=== PATIENT | male | born 2005 | race Caucasian/White ===

== ENCOUNTER 2024-09-21 14:22 | Emergency (ER) | payer OTHER, SELFPAY ==
--- NOTE | 2024-09-21 14:26 | ED.EPISTAXIS ---
HPI - Epistaxis General Chief complaint: Epistaxis Stated complaint: Nose Bleed Time Seen by Provider: 09/21/24 14:26 Source: patient Mode of arrival: ambulatory Limitations: no limitations History of Present Illness HPI Narrative: Ric is a 19-year-old male patient presenting to the clinic today with complaints a nosebleed since around 12:30 today. He reports he has been putting backing up in his nose but has not applied pressure to stop the bleeding. States every time he takes a packing out the bleeding continues. No injury. When asked if he picked his nose, he denies. Related Data Home Medications ?Medication ?Instructions ?Recorded ?Confirmed ?Last Taken ?Type No Home Medications 09/21/24 09/21/24 Unknown History Allergies Allergy/AdvReac Type Severity Reaction Status Date / Time No Known Allergies Allergy Verified 09/21/24 14:31 Review of Systems Review of Systems: Pertinent positives per HPI. Patient denies any fever, chills, rash, headache, visual changes, dizziness, cough, runny nose, sore throat, shortness of breath, chest pain, palpitations, nausea, vomiting, diarrhea, constipation, abdominal pain, or any urinary issues. PMFSH Comments At the time of my signature, I reviewed and agree with the nursing past medical, surgical, social, and family history. There is no relevant family history pertinent to the patient complaint. Exam Narrative: General: Well-developed, well nourished, in no apparent distress Head: Normocephalic, atraumatic Eyes: Pupils equally round and reactive to light bilaterally, EOM intact, sclera and conjunctive clear, no discharge, lids normal Ears: TMs intact and clear, ear canals clear, no drainage, grossly hearing normal. Nose: Nares patent, small blood clot noted to the left anterior nare @11 oclock, no active bleeding, no discharge, mild inflammation, no sinus tenderness. Mouth: Oropharynx without lesions or masses, good dentition, MMM. Neck: Supple, trachea midline, no enlargement of anterior or posterior cervical nodes, no thyroid masses or goiter palpable. Cardio: Regular rate and rhythm, s1 and s2 normal, no murmur appreciated. Resp: Clear to auscultation bilaterally anteriorly and posteriorly, no rhonchi, rales, wheezing or rubs Course Course Emergency Course: Portions of this record may have been created with voice recognition software. Level of Care: Express Care Visit Vital Signs Vital signs: Vital Signs Temperature 36.7 C 09/21/24 14:28 Pulse Rate 70 09/21/24 14:28 Respiratory Rate 14 09/21/24 14:28 Blood Pressure 140/91 H 09/21/24 14:28 Pulse Oximetry 100 09/21/24 14:28 Oxygen Delivery Room Air 09/21/24 14:28 Temperature 36.7 C 09/21/24 14:28 Pulse Rate 70 09/21/24 14:28 Respiratory Rate 14 09/21/24 14:28 Blood Pressure 140/91 H 09/21/24 14:28 Pulse Oximetry 100 09/21/24 14:28 Oxygen Delivery Room Air 09/21/24 14:28 Vital signs reviewed MDM - Epistaxis MDM Narrative Medical decision making narrative: At the time of visit patient is resting comfortably on the exam table. Patient appears to be nontoxic. Plan: Nasal packing was removed from the left near upon arrival and bleeding had stopped. Patient has a blood clot at 11:00 a.m. of the left anterior nare. No active bleeding. Watch the patient for 20 minutes and there was no further bleeding. Supportive measures were discussed with the patient and they voiced understanding discharge instructions and agrees to treatment plan. Return precautions reviewed Differential Diagnosis Differential diagnosis: Likely nasal bone fracture, anterior epistaxis, posterior epistaxis and other (Nasal trauma) Discharge Plan Discharge Clinical Impression: Epistaxis Patient Disposition: Home, Self-Care Condition: Stable Instructions: Antibiotic Form, Nosebleed (ED) Additional Instructions: There is a blood clot to the ri left anterior nose at 11:00 a.m.-avoid dislodging this until it is scabbed over Do not forcefully blow your nose for the next 24 hours Do not pick your nose Cool-mist humidifier at the bedside If nosebleed returns pinch the anterior nose for 20 minutes and keep your head forward-apply ice pack to the bridge of the nose for 20 minutes-20 minutes on/20 minutes off if bleeding continues repeat the steps. If bleeding does not stop within an hour seek medical attention Follow-up with your primary care doctor as needed Patient Language: Kinyarwanda Prescriptions: No Action No Home Medications Follow-up/Referrals: PHYSICIAN,R[employer] T[employer]CH [employer] PAINTER [Primary Care Provider] - Time of Disposition: 14:52 Quality NIHSS Nursing Documentation ED NIHSS nursing documentation: reviewed/agree
[2024-09-21 14:28] VITALS: BP 140/91; PULSE 70; RESP 14; TEMP 36.7; O2SAT 100
== END 2024-09-21 14:50 | disposition home or self-care (01) ==
PROVIDERS: Emergency Provider Nurse Practitioner Family
DX: R04.0 Epistaxis (principal)
CPT/HCPCS: 30901; 99212; G0463

== ENCOUNTER 2024-11-02 22:11 | Emergency (ER) | payer OTHER, BC, SELFPAY ==
[2024-11-02 22:31] VITALS: BP 155/83; PULSE 83; RESP 18; TEMP 37.4; O2SAT 97
--- NOTE | 2024-11-02 22:58 | ED_ITS ---
HPI - General Adult General Chief complaint: Animal Bite Stated complaint: Bites and scratches by own cat Time Seen by Provider: 11/02/24 22:22 History of Present Illness HPI narrative: This is a 69-year-old male presenting after he onto an altercation with his cat. Patient was trying to catch is CT after became alarmed when tried to put a leash on it. It then bit and scratched him along the hands and forearms. Cat is up-to-date on shots. Other injuries. Related Data Allergies Allergy/AdvReac Type Severity Reaction Status Date / Time No Known Allergies Allergy Verified 11/02/24 22:35 Exam Narrative: APPEARANCE: No apparent distress. Head: atraumatic. EYES: EOMI, NOSE: Atraumatic NECK: Trachea midline RESPIRATORY: No increased rate of breathing CARDIOVASCULAR: RRR, ABDOMINAL: Non-distended MUSCULOSKELETAl: No obvious deformities NEURO: Alert. Moving 4/4 extremities SKIN:: Several small punctures in scratches over the patient's hands forearms. None overlying any the joints. PSYCHIATRIC: Normal affect Course Vital Signs Vital signs: Vital Signs Temperature 99.4 F 11/02/24 22:31 Pulse Rate 83 11/02/24 22:31 Respiratory Rate 18 11/02/24 22:31 Blood Pressure 155/83 H 11/02/24 22:31 Pulse Oximetry 97 11/02/24 22:31 Temperature 99.4 F 11/02/24 22:31 Pulse Rate 83 11/02/24 22:31 Respiratory Rate 18 11/02/24 22:31 Blood Pressure 155/83 H 11/02/24 22:31 Pulse Oximetry 97 11/02/24 22:31 Medical Decision Making [facility] Narrative Medical decision making narrative: -Course: 19-year-old male presenting with multiple cat bites and scratches. None of the bites or scratches appear to be over a joint. There were all cleansed patient given Tdap and a course of Augmentin. Given return precautions for infection. - Vital Signs Vital Signs: Vital Signs Temperature 99.4 F 11/02/24 22:31 Pulse Rate 83 11/02/24 22:31 Respiratory Rate 18 11/02/24 22:31 Blood Pressure 155/83 H 11/02/24 22:31 Pulse Oximetry 97 11/02/24 22:31 Temperature 99.4 F 11/02/24 22:31 Pulse Rate 83 05/10/25 22:31 Respiratory Rate 18 11/02/24 22:31 Blood Pressure 155/83 H 11/02/24 22:31 Pulse Oximetry 97 11/02/24 22:31 Discharge Plan Discharge Clinical Impression: Cat bite Patient Disposition: Home Condition: Stable Instructions: Antibiotic Form, Animal Bite (ED) Additional Instructions: Please complete a course of Augmentin. If you develop signs of infection such as increased swelling, pain, redness, or purulent discharge, please return to emergency department immediately. Patient Language: Croatian Prescriptions: New amoxicillin-pot clavulanate 875-125 mg tablet 1 tablet PO Q12H Qty: 20 0RF Follow-up/Referrals: UNKNOWN,DOCTOR [Primary Care Provider] -
[2024-11-02] MEDS: TETANUS,DIPHTHERIA,AC PERTUSSIS ADULT (0.5 ML) BOOSTRIX IM (23:02)
[2024-11-02] MEDS: AMOXICILLIN/CLAVULANATE K 875-125 MG TAB 1 TABLET PO (23:02)
== END 2024-11-02 23:15 | disposition home or self-care (01) ==
PROVIDERS: Emergency Provider Emergency Medicine
DX: S51.852A Open bite of left forearm, initial encounter (principal); S51.851A Open bite of right forearm, initial encounter; S61.452A Open bite of left hand, initial encounter; S61.451A Open bite of right hand, initial encounter; Z23 Encounter for immunization; W55.01XA Bitten by cat, initial encounter
CPT/HCPCS: 90471; 90715; 99283; A9270

== ENCOUNTER 2025-01-17 09:21 | Emergency (ER) | payer OTHER, BC, SELFPAY ==
[2025-01-17 09:37] VITALS: BP 137/79; PULSE 66; RESP 16; TEMP 36.6; O2SAT 100
--- NOTE | 2025-01-17 09:39 | ED.GENADULT ---
HPI - General Adult General Chief complaint: Eye Problems Stated complaint: L eye metal shavings Time Seen by Provider: 01/17/25 09:29 History of Present Illness HPI narrative: 19-year-old male presenting to the emergency department for evaluation for left eye irritation. Patient was working under a car when he states he was struck by some of the components the brake rotor. This happened yesterday at work. Patient does complain of some pain in the left eye. Patient did get evaluated at urgent care and they were concerned about foreign body in the left eye. Related Data Allergies Allergy/AdvReac Type Severity Reaction Status Date / Time No Known Allergies Allergy Verified 01/17/25 09:43 Review of Systems Review of Systems: All systems reviewed & are unremarkable except as noted in HPI and below Exam Narrative: APPEARANCE: Well appearing, no pain, no distress, well-nourished. HEAD: normocephalic, atraumatic. EYES: Foreign body in left eye NOSE: Normal no drainage EARS:TMS clear with good light reflex. THROAT: Pharynx clear, no exudate. NECK: Supple. No adenopathy, no masses. RESPIRATORY: Airway patent, respirations nonlabored. Clear to auscultation bilaterally, no rales, rhonchi, wheezing. CARDIOVASCULAR: Regular rate and rhythm without murmurs rubs or gallops. ABDOMINAL: Soft, nontender, nondistended, normal bowel sounds MUSCULOSKELETAL: Moves all extremities. Strength/ROM intact, No edema, No calf tenderness. NEURO: Alert. Cranial nerves II through XII intact. Good gait. Good coordination SKIN: Warm, dry. Normal Color Course Vital Signs Vital signs: Vital Signs Temperature 98 F 01/17/25 09:37 Pulse Rate 66 01/17/25 09:37 Respiratory Rate 16 01/17/25 09:37 Blood Pressure 137/79 01/17/25 09:37 Pulse Oximetry 100 01/17/25 09:37 Oxygen Delivery Room Air 01/17/25 09:37 Temperature 98 F 01/17/25 09:37 Pulse Rate 66 01/17/25 09:37 Respiratory Rate 16 01/17/25 09:37 Blood Pressure 137/79 01/17/25 09:37 Pulse Oximetry 100 01/17/25 09:37 Oxygen Delivery Room Air 01/17/25 09:37 Procedures FB Removal Eye Foreign Body #1: Foreign Body Removal Time: 10:07 Time Out performed: Yes Location: eye (L) Topical anesthetic used: tetracaine Foreign body: metal Evidence of corneal penetration: Yes Technique: irrigation, cotton tip swab and needle Procedure performed under: direct visualization with magnification and slit-lamp Post-procedure medication: ophthalmic antibiotic and topical anesthetic Patient tolerated procedure: well and no complications Complications: corneal penetration Foreign Body Removal Narrative: Foreign body was removed with no large residual rust ring but patient does have corneal irritation overlying the pupil Medical Decision Making MDM Narrative Medical decision making narrative: 19-year-old male present to the emergency department for evaluation for a foreign body in the left eye. This was not a high velocity foreign body. Patient did have a visible metallic foreign body overlying the pupil of the left cornea. This was removed as described in the procedure note using an 18 gauge needle and got swab. Patient was started on erythromycin ointment to the emergency department. Patient's tetanus was up-to-date. Patient was strongly encouraged to have close follow-up with Ophthalmology due to the corneal defect overlying his pupil. Differential Diagnosis Differential Diagnosis: Corneal abrasion, foreign body, vision change Vital Signs Vital Signs: Vital Signs Temperature 98 F 01/17/25 09:37 Pulse Rate 66 01/17/25 09:37 Respiratory Rate 16 01/17/25 09:37 Blood Pressure 137/79 01/17/25 09:37 Pulse Oximetry 100 01/17/25 09:37 Oxygen Delivery Room Air 01/17/25 09:37 Temperature 98 F 01/17/25 09:37 Pulse Rate 66 01/17/25 09:37 Respiratory Rate 16 01/17/25 09:37 Blood Pressure 137/79 01/17/25 09:37 Pulse Oximetry 100 01/17/25 09:37 Oxygen Delivery Room Air 01/17/25 09:37 Discharge Plan Discharge Clinical Impression: Corneal abrasion, Foreign body in eyeball, left Patient Disposition: Home Condition: Stable Instructions: Antibiotic Form, Corneal Abrasion (DC), Eye Foreign Body (ED) Additional Instructions: Antibiotic ointment as directed until completed. Have close follow-up with Ophthalmology even if your symptoms do improve. Corneal injury was overlying your pupil and failure to have close follow-up with Ophthalmology could result in permanent vision changes and loss visual acuity of that left eye. Patient Language: Azeri Prescriptions: New erythromycin 5 mg/gram (0.5 %) ointment 0.5 inch LEFT EYE BID Qty: 3.5 0RF No Action amoxicillin-pot clavulanate 875-125 mg tablet 1 tablet PO Q12H Qty: 20 0RF Follow-up/Referrals: [facility] [Outside] [facility] [Outside] UNKNOWN,DOCTOR [Primary Care Provider] -
[2025-01-17] MEDS: TETRACAINE HCL 0.5% OPHTH SOLN 4 ML BTL 1 DROP EACH EYE (09:52)
[2025-01-17] MEDS: ERYTHROMYCIN OPHTH OINTMENT 1 GM TUBE 1 APPLIC LEFT EYE (10:32)
== END 2025-01-17 10:37 | disposition home or self-care (01) ==
PROVIDERS: Emergency Provider Emergency Medicine
DX: T15.02XA Foreign body in cornea, left eye, initial encounter (principal); W44.8XXA Other foreign body entering into or through a natural orifice, initial encounter
CPT/HCPCS: 65222; 99283; A9270